=== PATIENT | female | born 1945 ===

== ENCOUNTER 2023-08-29 09:22 | Observation (INO) | payer OTHER ==
[~2023-08-29] VITALS: Ht 167.6 cm; Wt 72.0 kg
[2023-08-29] VITALS (7 sets, daily range): BP systolic 157–191; BP diastolic 68–84
[2023-08-29 09:50] LABS: BASOPHILS ABSOLUTE AUTO 0.05 K/mm3 (0.00-0.23); BASOPHILS PERCENT AUTO 1 % (0-2); EOSINOPHILS ABSOLUTE AUTO 0.12 K/mm3 (0.00-0.68); EOSINOPHILS PERCENT AUTO 2 % (0-6); Hematocrit 39.8 % (33.0-51.0); Hemoglobin 13.4 g/dL (11.5-16.0); IMMATURE GRAN ABSOLUTE AUTO 0.01 K/mm3 (0.00-0.10); IMMATURE GRAN PERCENT AUTO 0 % (0-1); LYMPHOCYTES PERCENT AUTO 21 % (21-46); MONOCYTES ABSOLUTE AUTO 0.37 K/mm3 (0.16-1.47); MONOCYTES PERCENT AUTO 6 % (4-13); Mean Corpuscular HGB 31.5 pg (26.0-34.0); Mean Corpuscular HGB Conc 33.7 g/dL (31.5-36.5); Mean Corpuscular Volume 94 fL (80-100); Mean Platelet Volume 10.2 fL (9.1-12.4); NEUTROPHILS PERCENT AUTO 70 % (41-73); Platelet Count 172 K/mm3 (150-400); RDW Standard Deviation 44.7 fL (35.1-46.3); Red Blood Cell Count 4.25 M/mm3 (3.80-5.20); White Blood Cell Count 6.25 K/mm3 (4.00-11.30)
[2023-08-29 10:41] LABS: Source, Urine Clean Catch
[2023-08-29 10:45] LABS: Appearance, Urine Clear (Clear); Bilirubin, Urine Neg (Neg); Blood, Urine 2+ (Neg); Color, Urine Yellow (P-Yellow); Glucose Qualitative, Urine Neg (Neg); Ketones, Urine 1+ (Neg); Leukocyte Esterase, Urine Neg (Neg); Nitrite, Urine Neg (Neg); Protein, Urine 2+ (Neg); Urobilinogen, Urine NORM (Normal)
[2023-08-29 10:47] LABS: Albumin, Blood 3.4 g/dL (3.4-5.0); Albumin/Globulin Ratio 1.1 (0.8-1.8); Bilirubin, Total 0.6 mg/dL (0.1-1.0); Bun/Creatinine Ratio 25.8 (12.0-20.0); Calcium, Blood 9.1 mg/dL (8.5-10.1); Creatinine, Blood 1.2 mg/dL (0.40-1.00); Globulin, Blood 3.2 g/dL (2.2-4.0); Potassium, Blood 3.9 mmol/L (3.5-5.5); Total Protein, Blood 6.6 g/dL (6.4-8.2)
[2023-08-29 11:03] LABS: Bacteria Few /hpf; Red Blood Cells, Urine 0-2 /hpf (0-2); Squamous Epithelial Cells Many /hpf (Few)
[2023-08-29] MEDS ORDERED: ATENOLOL25 MG PO (13:59)
--- NOTE | 2023-08-29 14:26 | NUR ---
PT ARRIVED TO 342
[2023-08-29] MEDS ORDERED: CALCIUM MAGNES1 EAC1 PO (14:58)
--- NOTE | 2023-08-29 15:28 | NUR ---
Labetolol given per PRN orders for hypertension.
--- NOTE | 2023-08-29 16:56 | NUR ---
Dr. Bustos here to see the patient.
--- NOTE | 2023-08-29 17:40 | NUR ---
Pt alert, oriented, and cooperative. Very anxious on arrival about her being alone at [facility], but this was resolved after she spoke on the phone with someone who assured her that he was being taken care of while she is in hospital. She has been hypertensive, without resolution with IV labetolol. Oral coreg was started and now I also see a new order for lisinopril, so that will be given. Normal sinus rhythm since arrival. She has been ambulatory to the bathroom with stand by assistance from staff. Denies dizzyness/lightheadedness. No syncopal episodes. Appetite good.
--- NOTE | 2023-08-29 18:23 | NUR ---
Call to Dr. Spencer regarding elevated troponin. Pt has no symptoms of chest pain, pressure/discomfort. She went to imaging for head CT.
[2023-08-30 04:39] VITALS: BP 168/86
[2023-08-30 05:19] LABS: BASOPHILS ABSOLUTE AUTO 0.04 K/mm3 (0.00-0.23); BASOPHILS PERCENT AUTO 1 % (0-2); EOSINOPHILS ABSOLUTE AUTO 0.14 K/mm3 (0.00-0.68); EOSINOPHILS PERCENT AUTO 2 % (0-6); Hematocrit 36.1 % (33.0-51.0); IMMATURE GRAN ABSOLUTE AUTO 0.02 K/mm3 (0.00-0.10); IMMATURE GRAN PERCENT AUTO 0 % (0-1); LYMPHOCYTES PERCENT AUTO 17 % (21-46); MONOCYTES ABSOLUTE AUTO 0.55 K/mm3 (0.16-1.47); MONOCYTES PERCENT AUTO 8 % (4-13); Mean Corpuscular HGB 30.9 pg (26.0-34.0); Mean Corpuscular HGB Conc 33.2 g/dL (31.5-36.5); Mean Corpuscular Volume 93 fL (80-100); Mean Platelet Volume 10.2 fL (9.1-12.4); NEUTROPHILS ABSOLUTE AUTO 5.23 K/mm3 (1.96-9.15); NEUTROPHILS PERCENT AUTO 73 % (41-73); Platelet Count 171 K/mm3 (150-400); RDW Coefficient Variation 13.1 % (11.7-14.2); Red Blood Cell Count 3.88 M/mm3 (3.80-5.20); White Blood Cell Count 7.18 K/mm3 (4.00-11.30)
--- NOTE | 2023-08-30 05:49 | NUR ---
1900: ASSUMED CARE OF PT, REPORT RECEIVED FROM DAY SHIFT RN. PT IS FOUND TO BE LAYING IN BED ON HER BACK. A/O. REPORTS SYNCOPE AT HOME. DENIES CARDIAC SYMPTOMS THROUGHOUT THE SHIFT. PT REMAINS HYPERTENSIVE. REPORTED TO PROVIDER AND ORDER RECEIVED. PT REMAINED BELOW THE THRESHOLD FOR PRN MEDICAITON. NO SYMPTOMS OF CHEST PAIN/DISCOMFORT/SOB/DIZZINESS AT ANY TIME. TELEMETRY IS MAINTAINED. PT REMAINED IN SINUS RHYTHM THROUGHOUT. SBA TO THE BATHROOM WITHOUTH INCIDENT. CALL APPROPRIATLY. SAFETY MEASURES TAKEN, NEEDS ADDRESSED THROUGHOUT THE SHIFT.
[2023-08-30 05:52] LABS: Albumin, Blood 3.1 g/dL (3.4-5.0); Anion Gap 4 mmol/L (6-16); Blood Urea Nitrogen 34 mg/dL (8-24); Bun/Creatinine Ratio 30.9 (12.0-20.0); CO2, Blood 28 mmol/L (21-32); Calcium, Blood 8.6 mg/dL (8.5-10.1); Chloride, Blood 110 mmol/L (98-108); Glomerular Filtration Rate 52 (60-); Glucose, Blood 110 mg/dL (70-99); Magnesium, Blood 2.4 mg/dL (1.6-2.4); Phosphorus, Blood 3.8 mg/dL (2.5-4.9); Potassium, Blood 3.6 mmol/L (3.5-5.5); Sodium, Blood 142 mmol/L (136-145)
[2023-08-30 07:13] VITALS: BP 144/82
[2023-08-30] MEDS ORDERED: LISI20 PO (12:37)
[2023-08-30] MEDS ORDERED: CARV6.25 PO (12:37)
--- NOTE | 2023-08-30 15:23 | NUR ---
DISCHARGE A&OX4, COOPERATIVE WITH CARE, SLIGHLTY CONFUSED T/O SHIFT. NO ACUTE CHANGES THIS SHIFT. DENIED CP/PRESSURE, HEADACHE, DIZZINESS, OR SOB. PT VERBALIZED HOW STRESSED SHE IS AT HOME TAKING CARE OF HER AND HOW SHE DOESN'T KNOW HOW SHE WILL BE ABLE TO DO IT ANYMORE. CARE MANAGEMENT GAVE PATIENT A LIST OF CAREGIVING AGENCIES. DISCHARGE PACKET DISCUSSED AND PATIENT DENIED ANY QUESTIONS OR CONCERNS. IV AND TELE REMOVED. H[employer] FROM [employer] CAME AND PICKED PATIENT UP AT 1500.
== END 2023-08-30 14:34 | disposition home health service (06) ==
LOC: ER 09:22 → MEDS 09:23 → ENPENDDIS 08-30 12:22 → MEDS 08-30 14:34
PROVIDERS: Family Medicine; Student in an Organized Health Care Education/Training Program; ADMIT Hospitalist
DX: I48.0 Paroxysmal atrial fibrillation (principal); N17.9 Acute kidney failure, unspecified; I12.9 Hypertensive chronic kidney disease with stage 1 through stage 4 chronic kidney disease, or unspecified chronic kidney disease; N18.9 Chronic kidney disease, unspecified; R53.83 Other fatigue; Z88.0 Allergy status to penicillin; Z88.7 Allergy status to serum and vaccine; Z79.899 Other long term (current) drug therapy
CPT/HCPCS: 36415; 70450; 80053; 80069; 81001; 83735; 84443; 84484; 85025; 93005; 93010; 93306; 96372; 96374; 97110; 97161; 97530; 99285-25; A9270; G0378; J1644